=== PATIENT | female | born 1940 | race African-American/Black ===

== ENCOUNTER 2022-02-10 18:39 | Inpatient (IN) | payer MEDICARE, MEDICAID ==
[~2022-02-10] VITALS: Ht 162.6 cm; Wt 64.1 kg
[2022-02-10] MEDS ORDERED: cefTRIAXone 1GM/50ML D5W 50 ML IV ONE (19:00)
[2022-02-10] MEDS ORDERED: SODIUM CHLORIDE 0.9% 1,000 ML IV ONE ×2 (19:00)
[2022-02-10] MEDS ORDERED: AZITHROMYCIN 500MG/ 250ML 250 ML IV ONE (19:00)
[2022-02-10] MEDS ORDERED: SODIUM CHLORIDE 0.9% 1,750 ML IV ONE (19:00)
[2022-02-10] MEDS ORDERED: MIDAZOLAM DRIP 50 mg/50mL 50 ML IV ONE (19:09)
[2022-02-10] MEDS ORDERED: SODIUM BICARBONATE 8.4 % INJ 50ML VIAL IV ONE ×2 (19:15→21:45)
[2022-02-10] MEDS: MIDAZOLAM DRIP 50 mg/50mL 50 ML IV SCH (19:27)
[2022-02-10] MEDS ORDERED: NOREPINEPHRINE 8 MG/250ML KIT 250 ML IV ONE (19:42)
[2022-02-10 19:43] LABS: INR 1.03 (0.9-1.15); Partial Thromboplastin Time 30.4 sec (24.6-33.4)
[2022-02-10] MEDS ORDERED: NOREPINEPHRINE 8 MG/250ML KIT 250 ML IV SCH ×2 (19:45→20:00)
[2022-02-10 19:47] LABS: Basophils # (auto) 0 10 ^3/uL (0-0.2); Basophils % (auto) 0.5 % (0.0-2.0); Eosinophils # (auto) 0.1 10 ^3/uL (0-0.8); Eosinophils % (auto) 0.9 % (0.0-7.0); Hematocrit 28.9 % (36.0-46.0); Lymphocytes # (auto) 3.4 10 ^3/uL (0.4-5.4); Lymphocytes % (auto) 42.8 % (10.0-50.0); Mean Corpuscular Hemoglobin 28.9 pg (28.0-32.0); Mean Corpuscular Hgb Conc. 31.1 g/dL (32.0-36.0); Mean Corpuscular Volume 92.9 fL (80.0-100.0); Monocytes # (auto) 0.2 10 ^3/uL (0-1.3); Monocytes % (auto) 3.1 % (0.0-12.0); Neutrophils # (auto) 4.2 10 ^3/uL (1.6-8.6); Neutrophils % (auto) 52.7 % (37.0-80.0); Nucleated Red Blood Cells % 0.5 %; Red Blood Cells 3.11 10^6/uL (4.0-5.20); Red Cell Distribution Width 14.8 % (11.8-14.3)
[2022-02-10 19:49] LABS: Lactic Acid w/Reflex 9.1 mmol/L (0.4-2.0)
[2022-02-10] MEDS: NOREPINEPHRINE 8 MG/250ML KIT 250 ML IV SCH (19:50)
[2022-02-10 21:13] LABS: Anion Gap 18 (5-15); Blood Urea Nitrogen 27 mg/dL (7-18); Carbon Dioxide 16 mmol/L (21-32); Chloride 103 mmol/L (98-107); Glucose 312 mg/dL (74-106); Potassium 4.9 mmol/L (3.5-5.1); Sodium 137 mmol/L (136-145)
[2022-02-10 21:14] LABS: Alanine Aminotransferase 420 U/L (13-56); Albumin 2.3 g/dL (3.4-5.0); Alkaline Phosphatase 113 U/L (45-117); Aspartate Aminotransferase 564 U/L (15-37); BUN/Creatinine Ratio 18.4; Bilirubin, Total 0.2 mg/dL (0.2-1.0); Calcium 8.2 mg/dL (8.5-10.1); GFR African American 44 mL/min; GFR Non-African American 36 mL/min; Total Protein 5.6 g/dL (6.4-8.2)
[2022-02-10 22:38] LABS: Urine Bacteria FEW /hpf (None Seen); Urine Blood 3+ /uL (Negative); Urine Budding Yeast FEW /hpf (None Seen); Urine Hyaline Cast MANY /lpf (0 - 2); Urine Mucus FEW (None Seen); Urine Specific Gravity 1.017 (1.001-1.035); Urine WBC 21 /hpf (0 - 5); Urine WBC Clumps PRESENT /hpf (None Seen)
[2022-02-10] MEDS ORDERED: NITROGLYCERIN 0.4 MG SL TAB SL PRN (23:30)
[2022-02-10] MEDS ORDERED: VANCOMYCIN PER PHARMACY 0 MG IV SCH (23:30)
[2022-02-10] MEDS ORDERED: ONDANSETRON HCL 4 MG/2 ML VIAL IV PRN (23:30)
[2022-02-10] MEDS ORDERED: ALBUMIN 5% 250 ML IV ONE (23:30)
[2022-02-10] MEDS ORDERED: ACETAMINOPHEN 325 MG TAB PO PRN (23:30)
[2022-02-10] MEDS ORDERED: MORPHINE SULFATE INJ 2 MG/ml SYRG IV PRN (23:30)
[2022-02-11] VITALS (108 sets, daily range): BP systolic 64–211; BP diastolic 36–150
[2022-02-11] MEDS ORDERED: QUET100T47 PO (00:13)
[2022-02-11] MEDS ORDERED: LOSA25TA38 PO (00:13)
[2022-02-11] MEDS ORDERED: FURO20TA3 PO (00:13)
[2022-02-11] MEDS: InsuLIN REG 1unit/0.01ml Soln (100units/ml) SC SCH ×5 (00:30→23:42)
[2022-02-11] MEDS ORDERED: VANCOMYCIN 1GM/250ML 250 ML IV ONE (00:30)
[2022-02-11] MEDS ORDERED: VASOPRESSIN 20 UNIT/ML ONE ×2 (01:06→22:16)
[2022-02-11] MEDS ORDERED: PHENYLEPHRINE IV 250 ML IV ONE (01:48)
[2022-02-11] MEDS: MIDAZOLAM DRIP 50 mg/50mL 50 ML IV SCH ×4 (02:04→23:21)
[2022-02-11] MEDS: SODIUM CHLORIDE 0.9% 1,000 ML IV SCH ×2 (02:07→11:16)
[2022-02-11] MEDS: VASOPRESSIN 50 UNITS in D5W 5% 247.5 ML IV SCH ×2 (02:07→23:20)
[2022-02-11] MEDS: PHENYLEPHRINE IV 250 ML IV SCH ×4 (02:15→23:55)
[2022-02-11] MEDS ORDERED: EPINEPHrine HCL 250 ML IV ONE (02:58)
[2022-02-11] MEDS ORDERED: SODIUM BICARBONATE 8.4% INJ 50ML SYRINGE ONE (02:58)
[2022-02-11] MEDS ORDERED: SODIUM BICARBONATE 8.4 % INJ 50ML VIAL IV ONE ×4 (03:00→17:18)
[2022-02-11] MEDS: EPINEPHrine HCL 250 ML IV SCH (03:00)
[2022-02-11 03:41] LABS: BUN/Creatinine Ratio 19.1; Basophils # (auto) 0 10 ^3/uL (0-0.2); Basophils % (auto) 0.2 % (0.0-2.0); Calcium 7.1 mg/dL (8.5-10.1); Eosinophils # (auto) 0 10 ^3/uL (0-0.8); Eosinophils % (auto) 0.1 % (0.0-7.0); Hematocrit 24.7 % (36.0-46.0); Hemoglobin 7.4 g/dL (12.2-16.2); Lymphocytes # (auto) 0.7 10 ^3/uL (0.4-5.4); Lymphocytes % (auto) 13.7 % (10.0-50.0); Mean Corpuscular Hemoglobin 28.5 pg (28.0-32.0); Mean Corpuscular Hgb Conc. 30.1 g/dL (32.0-36.0); Mean Corpuscular Volume 94.7 fL (80.0-100.0); Monocytes # (auto) 0.2 10 ^3/uL (0-1.3); Neutrophils # (auto) 4.4 10 ^3/uL (1.6-8.6); Nucleated Red Blood Cells % 0.2 %; Potassium 4.4 mmol/L (3.5-5.1); Red Cell Distribution Width 14.9 % (11.8-14.3); White Blood Cell 5.3 10^3/uL (4.4-10.8)
[2022-02-11 03:44] LABS: Bilirubin, Total 0.3 mg/dL (0.2-1.0); Total Protein 4.1 g/dL (6.4-8.2)
[2022-02-11 04:28] LABS: INR 1.67 (0.9-1.15); Partial Thromboplastin Time 34.7 sec (24.6-33.4)
[2022-02-11] MEDS ORDERED: ALBUMIN 5% 250 ML IV ONE (05:15)
[2022-02-11] MEDS: ACCU-CHEK COMFORT CURVE STRIP VI SCH ×5 (06:25→23:42)
[2022-02-11] MEDS ORDERED: FUROSEMIDE 100 MG/10ML VIAL IV ONE (08:30)
[2022-02-11] MEDS ORDERED: DIGOXIN (250MCG/ML) 2 ML AMPULE IV ONE (08:30)
[2022-02-11] MEDS: PANTOPRAZOLE 40 MG/10 ML VIAL INJ IV SCH ×2 (09:06→21:54)
[2022-02-11] MEDS: cefTRIAXone 1GM/50ML D5W 50 ML IV SCH (09:07)
[2022-02-11] MEDS ORDERED: SODIUM BICARBONATE 8.4% INJ 50ML SYRINGE IV ONE (12:47)
[2022-02-11] MEDS: fentaNYL Drip 2500mCg/250mlNS 250 ML IV SCH (14:17)
[2022-02-11] MEDS ORDERED: SODIUM BICARBONATE 50ML VIAL 50 ML in SOD CHL 0.45% 1,000 ML IV SCH (17:00)
[2022-02-11] MEDS ORDERED: SODIUM BICARBONATE 50ML VIAL 75 ML in D5W 5% 1,000 ML IV SCH (17:00)
[2022-02-11] MEDS: SODIUM BICARBONATE 50ML VIAL 75 ML in SOD CHL 0.45% 1,000 ML IV SCH (17:33)
[2022-02-11 18:43] LABS: Basophils # (auto) 0 10 ^3/uL (0-0.2); Eosinophils # (auto) 0 10 ^3/uL (0-0.8); Eosinophils % (auto) 0.1 % (0.0-7.0); Mean Corpuscular Hemoglobin 28.1 pg (28.0-32.0); Nucleated Red Blood Cells % 0.2 %
[2022-02-11 18:45] LABS: Hematocrit 22.1 % (36.0-46.0); Lymphocytes # (auto) 1.3 10 ^3/uL (0.4-5.4); Lymphocytes % (auto) 8.1 % (10.0-50.0); Mean Corpuscular Hgb Conc. 30.6 g/dL (32.0-36.0); Mean Corpuscular Volume 91.8 fL (80.0-100.0); Monocytes # (auto) 0.4 10 ^3/uL (0-1.3); Monocytes % (auto) 2.7 % (0.0-12.0); Neutrophils # (auto) 13.7 10 ^3/uL (1.6-8.6); Neutrophils % (auto) 89.1 % (37.0-80.0); Red Blood Cells 2.41 10^6/uL (4.0-5.20); Red Cell Distribution Width 14.5 % (11.8-14.3); White Blood Cell 15.4 10^3/uL (4.4-10.8)
[2022-02-11 18:55] LABS: Hemoglobin 6.8 g/dL (12.2-16.2)
[2022-02-11] MEDS: NOREPINEPHRINE 8 MG/250ML KIT 250 ML IV SCH ×2 (19:50→22:40)
[2022-02-11] MEDS: INSULIN LANTUS (GLARGINE) 1 /0.01ml (100units/ml) SC SCH (21:54)
[2022-02-12] VITALS (108 sets, daily range): BP systolic 85–131; BP diastolic 44–75
[2022-02-12] MEDS: PHENYLEPHRINE IV 250 ML IV SCH ×6 (00:42→23:07)
[2022-02-12] MEDS: EPINEPHrine HCL 250 ML IV SCH ×3 (01:57→22:11)
[2022-02-12] MEDS: SODIUM BICARBONATE 50ML VIAL 75 ML in SOD CHL 0.45% 1,000 ML IV SCH ×3 (03:09→22:33)
[2022-02-12] MEDS: NOREPINEPHRINE 8 MG/250ML KIT 250 ML IV SCH ×4 (03:10→21:35)
[2022-02-12] MEDS: MIDAZOLAM DRIP 50 mg/50mL 50 ML IV SCH ×3 (03:11→22:34)
[2022-02-12 04:09] LABS: Hemoglobin 7.4 g/dL (12.2-16.2)
[2022-02-12 04:18] LABS: Hematocrit 23.7 % (36.0-46.0); INR 1.68 (0.9-1.15); Mean Corpuscular Hemoglobin 28.3 pg (28.0-32.0); Mean Corpuscular Hgb Conc. 31.1 g/dL (32.0-36.0); Mean Corpuscular Volume 90.8 fL (80.0-100.0); Partial Thromboplastin Time 34.5 sec (24.6-33.4); Red Blood Cells 2.61 10^6/uL (4.0-5.20); Red Cell Distribution Width 14.2 % (11.8-14.3); White Blood Cell 26.8 10^3/uL (4.4-10.8)
[2022-02-12 04:20] LABS: Basophils % (manual) 0 (0.0-2.0); Blast Cells 0; Eosinophils % (manual) 0 (0-7); Promyelocytes % 0; Reactive Lymphocytes 0
[2022-02-12 04:21] LABS: Albumin 1.9 g/dL (3.4-5.0); Calcium 6.8 mg/dL (8.5-10.1); Magnesium 1.8 mg/dL (1.6-2.6); Potassium 5.3 mmol/L (3.5-5.1)
[2022-02-12 04:27] LABS: BUN/Creatinine Ratio 22.1; Bilirubin, Total 0.4 mg/dL (0.2-1.0); Phosphorus 5.5 mg/dL (2.5-4.90); Total Protein 4.3 g/dL (6.4-8.2)
[2022-02-12 05:03] LABS: Band Neutrophils % (manual) 49; Metamyelocytes % 2; Monocytes % (manual) 3 (0-12); Myelocytes % 3
[2022-02-12 05:04] LABS: Lymphocytes % (manual) 8 (10.0-50.0)
[2022-02-12] MEDS: InsuLIN REG 1unit/0.01ml Soln (100units/ml) SC SCH ×3 (06:00→17:42)
[2022-02-12] MEDS: ACCU-CHEK COMFORT CURVE STRIP VI SCH ×3 (06:21→17:42)
[2022-02-12] MEDS: INSULIN LANTUS (GLARGINE) 1 /0.01ml (100units/ml) SC SCH ×2 (07:17→22:00)
[2022-02-12] MEDS: PANTOPRAZOLE 40 MG/10 ML VIAL INJ IV SCH ×3 (07:18→22:09)
[2022-02-12] MEDS: cefTRIAXone 1GM/50ML D5W 50 ML IV SCH (07:54)
[2022-02-12] MEDS: fentaNYL Drip 2500mCg/250mlNS 250 ML IV SCH (09:03)
[2022-02-12] MEDS ORDERED: VANCOMYCIN 1GM/250ML 250 ML IV ONE (11:15)
[2022-02-12] MEDS: BUMETANIDE 2.5mg/10ml (0.25 mg/ml) INJ IV SCH ×2 (14:10→17:23)
[2022-02-12] MEDS ORDERED: ALBUMIN 25% 100 ML IV ONE (17:30)
[2022-02-12] MEDS: DEXTROSE (50%) 50ML SYRG IV PRN (22:10)
[2022-02-13] VITALS (12 sets, daily range): BP systolic 75–101; BP diastolic 39–49
[2022-02-13] MEDS: InsuLIN REG 1unit/0.01ml Soln (100units/ml) SC SCH
[2022-02-13] MEDS: ACCU-CHEK COMFORT CURVE STRIP VI SCH (00:16)
[2022-02-13] MEDS: DEXTROSE (50%) 50ML SYRG IV PRN (00:17)
[2022-02-13] MEDS: fentaNYL Drip 2500mCg/250mlNS 250 ML IV SCH (00:18)
[2022-02-13] MEDS: NOREPINEPHRINE 8 MG/250ML KIT 250 ML IV SCH (02:01)
[2022-02-13] MEDS ORDERED: SODIUM BICARBONATE 8.4% INJ 50ML SYRINGE IV ONE (09:59)
[2022-02-13] MEDS ORDERED: EPINEPHrine HCL 1 MG/10 ML SYRG IV ONE (09:59)
== END 2022-02-13 10:00 | DRG 871 ==
LOC: ER 18:44 → TELE 22:33 → ICU WEST 23:47
PROVIDERS: ADMIT Nurse Practitioner; ATTEND Internal Medicine
PROC: 5A1945Z Respiratory Ventilation, 24-96 Consecutive Hours (ICD-10-PCS; principal; 2022-02-10)
PROC: 0BH17EZ Insertion of Endotracheal Airway into Trachea, Via Natural or Artificial Opening (ICD-10-PCS; 2022-02-10)
PROC: 5A12012 Performance of Cardiac Output, Single, Manual (ICD-10-PCS; 2022-02-10)
DX: A41.9 Sepsis, unspecified organism (principal); E43 Unspecified severe protein-calorie malnutrition; I21.4 Non-ST elevation (NSTEMI) myocardial infarction; J96.01 Acute respiratory failure with hypoxia; N17.0 Acute kidney failure with tubular necrosis; R65.21 Severe sepsis with septic shock; J15.211 Pneumonia due to Methicillin susceptible Staphylococcus aureus; N39.0 Urinary tract infection, site not specified; D62 Acute posthemorrhagic anemia; E87.2 Acidosis; Z20.822 Contact with and (suspected) exposure to COVID-19; I46.9 Cardiac arrest, cause unspecified; E11.9 Type 2 diabetes mellitus without complications; I48.91 Unspecified atrial fibrillation; I10 Essential (primary) hypertension; Z86.73 Personal history of transient ischemic attack (TIA), and cerebral infarction without residual deficits; Z68.24 Body mass index [BMI] 24.0-24.9, adult
CPT/HCPCS: 36415; 36556; 36600; 70450; 71045; 80053; 80202; 81001; 82805; 82962; 83036; 83605; 83735; 83880; 84100; 84484; 85007; 85025; 85027; 85379; 85610; 85730; 87040; 87070; 87077; 87081; 87086; 87088; 87186; 87205; 92950; 93306; 93970; 94002; 94003; 96365; 96366; 96367; 96368; 96375; 96376; 99291; C9113; G0378; J0171; J0696; J1815; J2250; J7060; P9047